=== PATIENT | female | born 1935 ===

== ENCOUNTER 2017-08-25 05:16 | Day surgery (SDC) | payer MEDICARE, OTHER ==
--- NOTE | 2017-08-22 20:15 | Pre-op HX & Phy Repo 2 SIG ---
DATE OF ADMISSION: 08/25/2017 DATE OF SURGERY: 08/25/2017. PREOPERATIVE DIAGNOSIS: Dense epiretinal membrane, right eye. Procedures To Be Performed: Pars plana vitrectomy with membrane and ILM peel, right eye. Brief Note: This is a first [facility] admission for this patient, who is a very nice 81-year-old lady, who complained of blurred and distorted vision in the right eye. Past Ocular History: Remarkable for cataract extraction done on the right eye eight years ago2. She has a cataract on the left eye. Past Medical History: Remarkable for hypertension and thyroid disease. MEDICATIONS: She is on antihypertensive plus thyroid medications. ALLERGIES: She has no allergies. SOCIAL HISTORY: She does not smoke or drink. PHYSICAL EXAMINATION: Eyes: Best vision at the time of admission was 20/60- 2 in the right eye and 20/50 in the left with pressures of 17. The anterior segment on the right showed a posterior chamber lens in good position. The left showed 3+ nuclear sclerosis. Fundus on the right showed a very dense epiretinal membrane with thickening and distortion of the retina. The left fundus showed a very mild pucker behind the moderate cataract. General physical examination will be performed by Dr. Cui. Assessment: Macular pucker, right eye with significant vitreomacular traction. Plan: The plan is to perform a pars plana vitrectomy with peeling of the epiretinal membrane on the right. The risks and benefits of surgery were gone over with the patient including the potential for infection, hemorrhage, glaucoma, and remote possibility of loss of the eye. The risk of anesthesia was discussed. The patient understands and consents to the surgery, which will be performed on Friday. Marcio Dexter M.D. DR: Gene JOB#: [id number] CC: SHANNON
[~2017-08-25] VITALS: Ht 157.5 cm; Wt 49.9 kg
[2017-08-25] VITALS (10 sets, daily range): BP systolic 144–194; BP diastolic 59–92
[2017-08-25] MEDS ORDERED: Cyclopentolate 1% Opth Sol 2ml ONE (05:30)
[2017-08-25] MEDS ORDERED: Vigamox Opth Soln 3ml ONE (05:30)
[2017-08-25] MEDS ORDERED: Flurbiprofen 0.03% Opth Sol 2.5ml ONE (05:30)
[2017-08-25] MEDS ORDERED: Phenylephrine 2.5% Op 2ml Soln ONE (05:30)
[2017-08-25] MEDS: Vigamox Opth Soln 3ml RIGHT EYE SCH ×3 (05:55→06:31)
[2017-08-25] MEDS: Cyclopentolate 1% Opth Sol 2ml RIGHT EYE SCH ×3 (05:55→06:31)
[2017-08-25] MEDS: Flurbiprofen 0.03% Opth Sol 2.5ml RIGHT EYE SCH ×3 (05:55→06:31)
[2017-08-25] MEDS: Phenylephrine 2.5% Op 2ml Soln RIGHT EYE SCH ×3 (05:55→06:31)
[2017-08-25] MEDS ORDERED: Pred Forte 1% Opth Susp 1ml RIGHT EYE SCH (06:00)
[2017-08-25 06:13] LABS: BASOPHILS % (AUTO) 1.1 % (0.0-2.0); EOSINOPHILS % (AUTO) 2.6 % (0.0-3.0); LYMPHOCYTES % (AUTO) 34.3 % (20.0-45.0); MEAN CORPUSCULAR HEMOGLOBIN 31.4 PG (27.0-31.0); MEAN CORPUSCULAR HGB CONC 34.3 G/DL (32.0-36.0); MEAN CORPUSCULAR VOLUME 91 FL (80-99); MEAN PLATELET VOLUME 9.9 FL (6.5-10.1); PLATELET COUNT 174 K/UL (150-450); RED BLOOD COUNT 4.22 M/UL (4.20-5.40); RED CELL DISTRIBUTION WIDTH 11.8 % (11.6-14.8); WHITE BLOOD COUNT 7.5 K/UL (4.8-10.8)
--- NOTE | 2017-08-25 06:14 | Pre-Procedure Note/Attestation ---
Pre-Procedure Note/Attestation Complete Prior to Procedure Planned Procedure: right Procedure Narrative: PPV, ICG assisted membrane peel, endolaser, Kenalog injection Right eye Indications for Procedure Pre-Operative Diagnosis: Macular pucker Right eye Attestation I attest that I discussed the nature of the procedure; its benefits; risks and complications; and alternatives (and the risks and benefits of such alternatives ), prior to the procedure, with the patient (or the patient's legal representative government relations). I attest that, if there was a reasonable possibility of needing a blood transfusion, the patient (or the patient's legal representative government relations) was given the [facility] standardized written summary, pursuant to the Maximo Mandie Blood Safety Act ([place] Health and Safety Code # 1645, as amended). I attest that I re-evaluated the patient just prior to the surgery and that there has been no change in the patient's H&P, except as documented below: SARAH TEJEDA Aug 25, 2017 06:14
[2017-08-25] MEDS ORDERED: LEVOTHYROXINE50 MCG ORAL (06:20)
[2017-08-25] MEDS ORDERED: ATORVASTATIN CA20 MG ORAL (06:20)
[2017-08-25] MEDS ORDERED: HYDROCHLOROTH12.5 MG ORAL (06:20)
[2017-08-25 06:27] LABS: ANION GAP 13 (5-15); CALCIUM 9.3 mg/dL (8.6-10.2); CARBON DIOXIDE 29 mEQ/L (20-30); CHLORIDE 99 mEQ/L (98-107); CREATININE 0.8 mg/dL (0.5-0.9); HEMOLYSIS 9; POTASSIUM 3.2 mEQ/L (3.4-4.9); SODIUM 141 mEQ/L (135-145)
[2017-08-25] MEDS ORDERED: BSS 500ml btl ONE (06:59)
[2017-08-25] MEDS ORDERED: Kenalog-40 1ml Vial ONE (06:59)
[2017-08-25] MEDS ORDERED: Dexamethasone 4mg/ml vial ONE (07:00)
[2017-08-25] MEDS ORDERED: Maxitrol Opth Oint 3.5gm ONE (07:00)
[2017-08-25] MEDS ORDERED: Tetracaine 0.5% Opth 4ml Soln ONE (07:00)
[2017-08-25] MEDS ORDERED: EPINEPHrine 1mg/1ml Amp ONE (07:01)
[2017-08-25] MEDS ORDERED: Povidone-Iodine 5% opth solution ONE (07:01)
[2017-08-25] MEDS ORDERED: Kenalog-10 5ml Inj ONE (07:01)
[2017-08-25] MEDS ORDERED: Bupivacaine 0.75% 30ml vial INJ ONE (07:02)
[2017-08-25] MEDS ORDERED: BSS 15ml BTL ONE (07:02)
[2017-08-25] MEDS ORDERED: Lidocaine 2% MPF 5ml Vial INJ ONE (07:02)
[2017-08-25] MEDS ORDERED: NS Irrig 1000ml ONE (07:30)
[2017-08-25] MEDS ORDERED: Sterile Water Irrig 1000ml IRRIG ONE (07:30)
[2017-08-25] MEDS ORDERED: LR 1000ml ONE (07:30)
[2017-08-25] MEDS ORDERED: Propofol 200mg/20ml IV ONE (07:30)
[2017-08-25] MEDS ORDERED: Indocyanine Green 25mg Inj INJ ONE (08:00)
[2017-08-25] MEDS ORDERED: LR 1000ml 1,000 ML IVLG SCH (08:02)
--- NOTE | 2017-08-25 08:06 | Anethesia Preoperative Eval ---
Anesthesia Pre-op PMH/ROS General Date of Evaluation: Aug 25, 2017 Time of Evaluation: 07:25 Anesthesiologist: Omega ASA Score: ASA 3 Mallampati Score Class I : Soft palate, uvula, fauces, pillars visible Class II: Soft palate, uvula, fauces visible Class III: Soft palate, base of uvula visible Class IV: Only hard plate visible Mallampati Classification: Class II Surgeon: Isacc Diagnosis: Macular pucker right eye Surgical Procedure: Vitrectomy, membrane peeling Family History: no anesthesia problems Allergies: Coded Allergies: PENICILLINS (Verified Allergy, Unknown, 08/22/17) Medications: see eMAR Past Medical History Cardiovascular: Reports: HTN, Denies: CAD, AL, valve dz, arrhythmia, other Pulmonary: Denies: asthma, COPD, LETICIA, other Gastrointestinal/Genitourinary: Denies: GERD, CRI, ESRD, other Neurologic/Psychiatric: Denies: dementia, CVA, depression/anxiety, TIA, other Endocrine: Reports: hypothyroidism, Denies: DM, steroids, other HEENT: Denies: cataract (L), cataract (R), glaucoma, WILTON (L), WILTON (R), other Hematology/Immune: Denies: anemia, DVT, bleeding disorder, other Musculoskeletal/Integumentary: Denies: OA, RA, DJD, DDD, edema, other PMH Narrative: HTN, hypothyroid, hypercholesterolemia PSxH Narrative: AP, neck surgery Anesthesia Pre-op Phys. Exam Physician Exam Last Vital Signs Date Time Temp Pulse Resp B/P (MAP) Pulse Ox O2 Delivery O2 Flow Rate FiO2 08/25/17 06:28 97.9 73 20 173/74 99 Room Air Constitutional: NAD Neurologic: CN 2-12 intact Cardiovascular: RRR, no M/R/G Respiratory: CTA Gastrointestinal: S/NT/ND Airway Exam Mallampati Score: Class II MO: full ROM: full Dentures: upper, lower Anesthesia Pre-op A/P Labs Hematology Test 08/25/17 05:50 White Blood Count 7.5 K/UL (4.8-10.8) Red Blood Count 4.22 M/UL (4.20-5.40) Hemoglobin 13.2 G/DL (12.0-16.0) Hematocrit 38.6 % (37.0-47.0) Mean Corpuscular Volume 91 FL (80-99) Mean Corpuscular Hemoglobin 31.4 PG (27.0-31.0) H Mean Corpuscular Hemoglobin Concent 34.3 G/DL (32.0-36.0) Red Cell Distribution Width 11.8 % (11.6-14.8) Platelet Count 174 K/UL (150-450) Mean Platelet Volume 9.9 FL (6.5-10.1) Neutrophils (%) (Auto) 52.0 % (45.0-75.0) Lymphocytes (%) (Auto) 34.3 % (20.0-45.0) Monocytes (%) (Auto) 10.0 % (1.0-10.0) Eosinophils (%) (Auto) 2.6 % (0.0-3.0) Basophils (%) (Auto) 1.1 % (0.0-2.0) Chemistry Test 08/25/17 05:50 Sodium Level 141 mEQ/L (135-145) Potassium Level 3.2 mEQ/L (3.4-4.9) L Chloride Level 99 mEQ/L (98-107) Carbon Dioxide Level 29 mEQ/L (20-30) Anion Gap 13 (5-15) Blood Urea Nitrogen 22 mg/dL (7-23) Creatinine 0.8 mg/dL (0.5-0.9) Estimat Glomerular Filtration Rate mL/min (>60) Glucose Level 115 mg/dL (74-106) H Calcium Level 9.3 mg/dL (8.6-10.2) Risk Assessment & Plan Assessment: Macular pucker in an ASA 3 patient Plan: MAC Status Change Before Surgery: No Pre-Antibiotics Drug: None JESSIE SANTACRUZ M.D. Aug 25, 2017 08:06
--- NOTE | 2017-08-25 08:07 | Immediate Post-Op Evaluation ---
Immediate Post-Op Evalulation Immediate Post-Op Evalulation Procedure: Vitrectomy, membrane peeling right eye Date of Evaluation: Aug 25, 2017 Time of Evaluation: 08:40 IV Fluids: 600 Blood Pressure Systolic: 184 Blood Pressure Diastolic: 68 Pulse Rate: 71 Respiratory Rate: 20 O2 Sat by Pulse Oximetry: 99 Temperature (Fahrenheit): 98.3 Pain Score (1-10): 0 Nausea: No Vomiting: No Complications No complication Patient Status: awake, patent, none Hydration Status: adequate Drug: None JESSIE SANTACRUZ M.D. Aug 25, 2017 08:07
[2017-08-25] MEDS ORDERED: fentaNYL 100 mcg/2 mL IV PRN (08:15)
[2017-08-25] MEDS ORDERED: LR 1000ml 1,000 ML IV SCH (08:15)
[2017-08-25] MEDS ORDERED: Sodium Hyaluronate 10 mg/ml 0.85ml ONE (08:31)
--- NOTE | 2017-08-25 08:37 | 48 Hour Post Anesthesia Eval ---
Post Anesthesia Evaluation Procedure: Vitrectomy, membrane peeling right eye Date of Evaluation: Aug 25, 2017 Time of Evaluation: 09:05 Blood Pressure Systolic: 176 0: 67 Pulse Rate: 60 Respiratory Rate: 16 O2 Sat by Pulse Oximetry: 100 Airway: patent Nausea: No Vomiting: No Pain Intensity: 0 Hydration Status: adequate Cardiopulmonary Status: Stable Mental Status/LOC: patient returned to baseline Follow-up Care/Observations: As per surgery Post-Anesthesia Complications: No anesthetic complication Follow-up care needed: N/A JESSIE SANTACRUZ M.D. Aug 25, 2017 08:37
--- NOTE | 2017-08-25 08:47 | Brief Operative Note ---
Immediate Post Operative Note Operative Note Chief Complaint: Distorted and blurred vision Right eye Pre-op Diagnosis: Macular pucker Right eye Procedure: PPV, membrane peel with ICG assist, Kenalog injection Right eye Post-op Diagnosis: same as pre-op Surgeon: megha Anesthesiologist: Zaida Anesthesia: MAC Specimen: none Complications: none Condition: stable Fluids: none Estimated Blood Loss: none Drains: none Implant(s) used?: No SARAH TEJEDA Aug 25, 2017 08:47
[2017-08-25] MEDS ORDERED: Norco 5mg/325mg tab ORAL PRN (09:00)
--- NOTE | 2017-08-25 16:45 | Operative Note - Dictated ---
DATE OF OPERATION: 08/25/2017 PREOPERATIVE DIAGNOSIS: Macular pucker, right eye. POSTOPERATIVE DIAGNOSIS: Macular pucker, right eye. PROCEDURES: 1. Pars plana vitrectomy. 2. ICG assisted membrane peel. 3. Kenalog injection, right eye. SURGEON: Marcio Dexter M.D. VEGETABLE HARVEST WORKER: None. ANESTHESIA: Local sedation. ANESTHESIOLOGIST: Maximo Duff M.D. Justification For Surgery: This 81-year-old lady had developed distortion of vision in the right eye with retinal thickening and was found to have a macular pucker. Brief Note: The patient was brought to the operating room, placed on OR table in supine position. After a time-out was performed and agreed upon by the staff, an initial monitoring secured by Dr. Duff. Retrobulbar and Van Lint blocks were given in standard way. When the blocks taken effect, she was prepped and draped in normal manner. A lid speculum was inserted to the right eye. Using a 23-gauge trocar system, cannulas were placed in all except infranasal quadrant. Infusion secured inferotemporally. Vitrectomy was begun posterior to the lens implant. Vitreous adhesions removed from the posterior capsule followed by central core vitrectomy and a peripheral vitrectomy leaving a small vitreous skirt. Kenalog was used to aid in visualization of the vitreous. The pressure was lowered and 1 drop of ICG was used to stain the central macula. The ICG was immediately flushed from the eye. Using a posterior viewing lens, the posterior segment was examined and the internal limiting lamina was engaged along with the overlying membrane just nasal to the macula. This was easily peeled across the macula and nasally leaving a roughly 3 disc diameter area devoid of ILM and overlying membrane. Scleral depression was done and no peripheral breaks, tears, or detachments were seen. Additional residual vitreous was removed peripherally and 2 mg of Kenalog were injected. The cannulas were removed and all were noted to be self-sealing. Subconjunctival Decadron and gentamicin were injected inferiorly. Maxitrol and atropine ointments were instilled. The eye was patched and shielded, and the patient was taken to recovery in excellent condition. No complications. Marcio Dexter, M.D. DR: LYNDA JOB#: [id number] CC: SHANNON
--- NOTE | 2017-09-01 19:19 | Cardiology Report ---
APPROVED REPORT EKG Measurement Heart [id number] Normal sinus rhythm Abnormal ECG
--- NOTE | 2017-09-04 13:00 | Pre-op HX & Phy Repo 2 SIG ---
PRESURGICAL INTERNAL MEDICINE HISTORY AND PHYSICAL History of present illness: The patient is an 81-year-old Korean-speaking female was seen in presurgical evaluation on the request of Dr. Marcio Dexter. The patient is going for elective surgery on the right eye. The patient has a macular pucker in the right eye. Please see History and Physical by plant breeder scientist, Dr. Marcio Dexter. The patient was evaluated. Chart was reviewed. Information obtained from the daughter at bedside. Past Medical History/Review Of Systems: Remarkable for hypertension and hypothyroidism. Denies history of diabetes. No history of heart attack, chest pain, or palpitation. No history of stroke or seizures. Denies history of renal insufficiency. No anemia. No GI bleeding. No hepatitis. PAST SURGICAL HISTORY: Appendectomy 20 years ago. ALLERGIES: Not known. Current Medications: Include hydrochlorothiazide, atorvastatin, and levothyroxine. HABITS: Denies history of smoke or alcohol habits. No street drugs. Family History: Mother from complication of diabetes mellitus. Father, renal failure. PHYSICAL EXAMINATION: General: Alert, well-developed, well-nourished female, in her 80s, no acute distress. Vital Signs: Blood pressure 170/74, temperature 97.9, pulse 93 and regular, respirations 20 per minute, and O2 saturation 99% on room. Skin: Dry, pale. No rashes or ulceration. Lymph nodes not enlarged. HEENT: Head, normocephalic. Ears, clear. No discharge. Nose, clear. No discharge. Mouth, clear and moist. Wear dentures. Eyes, full description per Dr. Marcio Dexter. Neck: Supple. No jugular vein distention. Carotids artery +2. Trachea midline. CHEST: No deformity or asymmetry. LUNGS: Clear. No rales or rhonchi. HEART: Sinus rhythm. Rate 77. No murmur. No S3 and S4. ABDOMEN: Soft, benign. Liver and spleen not enlarged. No rebound. EXTREMITIES: No edema. No varicose veins. No calf tenderness. GENITOURINARY: Denies dysuria. No CVA tenderness. NERVOUS SYSTEM: No tremor. No nystagmus. No asymmetry. Diagnostic Data: Electrocardiogram normal sinus rhythm, 77 per minute, ST T-wave abnormality, consider lateral ischemia. Laboratory work pending. IMPRESSION: 1. Macular pucker, right eye. 2. Hypertension, fairly controlled. 3. Hypothyroidism. 4. Hyperlipidemia. 5. Coronary heart disease with EKG changes in lateral leads, asymptomatic. Plan: Pars plana vitrectomy, 23 G membrane peeling, right eye per Dr. Marcio Dexter. Conclusion: The patient is a 81-year-old female, asymptomatic with history of hypertension and blood pressure elevation. The patient has a history of hypothyroidism and changes on the electrocardiogram, consider lateral ischemia. The patient did not eat or drink from last night. Laboratory work pending. The patient's condition optimized for surgery. Leland Cui M.D. DR: MOE JOB#: [id number] CC:
== END 2017-08-25 12:15 | disposition home or self-care (01) ==
LOC: SUR 05:16
DX: H35.371 Puckering of macula, right eye (principal); H26.9 Unspecified cataract; I10 Essential (primary) hypertension; H53.8 Other visual disturbances; Z88.0 Allergy status to penicillin
CPT/HCPCS: 36415; 67041; 80048; 85025; 93005; J0171; J1100; J2704; J3301; J3470; J3490; J7120; 94003; 94150